=== PATIENT | female | born 1990 | race African-American/Black ===

== ENCOUNTER 2018-10-11 17:25 | Emergency (ER) | payer OTHER ==
--- NOTE | 2018-10-11 17:30 | PDOC ---
Rapid Medical Evaluation Time Seen by Provider: 10/11/18 17:27 Medical Evaluation: 10/11/18 17:28 HPI:pelvic pressure x2 days PE:No gross deficits ORDERS: UA U Preg Belly Labs Discharge Disposition - Diagnosis Pelvic pressure in female - Referrals - Patient Instructions - Post Discharge Activity
[2018-10-11 17:42] VITALS: BP 106/60; PULSE 100; TEMP 98.8; BMI 37.2
[2018-10-11 18:55] LABS: BASO % 0.8 % (0-2.0); EOS % 0.8 % (0-4.5); HEMATOCRIT 36.4 % (32.4-45.2); HEMOGLOBIN 12.3 GM/dL (10.7-15.3); LYMPH % 20.2 % (8-40); MCH 28.5 pg (25.7-33.7); MCHC 33.7 g/dl (32.0-36.0); MEAN CELL VOLUME 84.3 fl (80-96); MEAN PLT VOLUME 8.6 fl (7.5-11.1); MONO % 5.5 % (3.8-10.2); NEUT % 72.7 % (42.8-82.8); PLATELET COUNT 283 K/MM3 (134-434); RBC 4.31 M/mm3 (3.60-5.2); RDW 14.2 % (11.6-15.6)
[2018-10-11 19:22] LABS: ALBUMIN 3.1 g/dl (3.4-5.0); BILIRUBIN,TOTAL 0.4 mg/dL (0.2-1); BLOOD UREA NITROGEN 5.6 mg/dL (7-18); CALCIUM 9.3 mg/dL (8.5-10.1); CREATININE 0.6 mg/dL (0.55-1.3); POTASSIUM 3.9 mmol/L (3.5-5.1); TOT PROT 6.6 g/dl (6.4-8.2)
[2018-10-11 19:44] LABS: EPI CELLS 28.3 /HPF (0-5/HPF); HYALINE CASTS 20 /lpf (0-8); URINE APPEARANCE TURBID; URINE BACTERIA 1140.1 /hpf (NEGATIVE); URINE BILIRUBIN NEGATIVE (NEGATIVE); URINE COLOR YELLOW; URINE GLUCOSE (UA) NEGATIVE (NEGATIVE); URINE KETONE 3+ (NEGATIVE); URINE LEUK ESTERASE 2+ (NEGATIVE); URINE NITRITE NEGATIVE (NEGATIVE); URINE PROTEIN NEGATIVE (NEGATIVE); URINE WBC 51 /hpf (0-5)
--- NOTE | 2018-10-11 19:51 | PDOC ---
*Physical Exam - Vital Signs Last Vital Signs Temp Pulse Resp BP Pulse Ox 98.8 F 100 H 18 106/60 99 10/11/18 17:32 10/11/18 17:32 10/11/18 17:32 10/11/18 17:32 10/11/18 17:32 ED Treatment Course - LABORATORY CBC & Chemistry Diagram: 10/11/18 18:45 10/11/18 18:45 - ADDITIONAL ORDERS Additional order review: Laboratory Results 10/11/18 10/11/18 10/11/18 19:15 19:15 18:45 Sodium Potassium Chloride Carbon Dioxide Anion Gap BUN Creatinine Est GFR (CKD-EPI)AfAm Est GFR (CKD-EPI)NonAf Random Glucose Calcium Total Bilirubin AST ALT Alkaline Phosphatase Total Protein Albumin Lipase 100 Urine Color Yellow Urine Appearance Turbid Urine pH 5.0 Ur Specific [place] 1.028 Urine Protein Negative Urine Glucose (UA) Negative Urine Ketones 3+ H Urine Blood Negative Urine Nitrite Negative Urine Bilirubin Negative Urine Urobilinogen 1.0 Ur Leukocyte Esterase 2+ H Urine WBC (Auto) 51 Urine Casts (Auto) 20 U Epithel Cells (Auto) 28.3 Urine Bacteria (Auto) 1140.1 Urine HCG, Qual Positive 10/11/18 18:45 Sodium 140 Potassium 3.9 Chloride 107 Carbon Dioxide 24 Anion Gap 9 BUN 5.6 L Creatinine 0.6 Est GFR (CKD-EPI)AfAm 144.78 Est GFR (CKD-EPI)NonAf 124.92 Random Glucose 70 L Calcium 9.3 Total Bilirubin 0.4 AST 7 L ALT 14 Alkaline Phosphatase 53 Total Protein 6.6 Albumin 3.1 L Lipase Urine Color Urine Appearance Urine pH Ur Specific [place] Urine Protein Urine Glucose (UA) Urine Ketones Urine Blood Urine Nitrite Urine Bilirubin Urine Urobilinogen Ur Leukocyte Esterase Urine WBC (Auto) Urine Casts (Auto) U Epithel Cells (Auto) Urine Bacteria (Auto) Urine HCG, Qual 10/11/18 18:45 RBC 4.31 MCV 84.3 MCHC 33.7 RDW 14.2 MPV 8.6 Neutrophils % 72.7 Lymphocytes % 20.2 Monocytes % 5.5 Eosinophils % 0.8 Basophils % 0.8 Medical Decision Making - Medical Decision Making 10/11/18 19:50 Patient seen by the advanced practice provider under my direct supervision. Ancillary testing reviewed as necessary. I agree with plan as outlined by the advanced practice provider. *DC/Admit/Observation/Transfer Diagnosis at time of Disposition: Cystitis - Discharge Dispostion Disposition: HOME Condition at time of disposition: Stable - Prescriptions Prescriptions: Cephalexin Monohydrate [Keflex -] 500 mg PO BID #14 capsule - Referrals - Patient Instructions Additional Instructions: Rest, drink lots of fluids: Teas, water, soups Avoid contact with others until fevers and symptoms resolved Lots of handwashing and good hygiene Continue [id number] medications for symptomatic relief Tylenol for fever and pain Continue all of antibiotics until completed Followup with your land commissioner in one week for repeat urinalysis/reevaluation Return to emergency department for worsened symptoms, fevers, dehydration - Post Discharge Activity
[2018-10-11 20:02] LABS: URINE RBC 6.6 /hpf (0-4)
[2018-10-11 20:03] LABS: URINE CRYSTALS CALCIUM OXALATE 3+ /hpf
--- NOTE | 2018-10-11 20:18 | PDOC ---
History of Present Illness - General Chief Complaint: Pain Stated Complaint: 16 WK PREG/PRESSURE PAIN Time Seen by Provider: 10/11/18 17:27 History Source: Patient Exam Limitations: No Limitations - History of Present Illness Initial Comments: 10/11/18 20:01 HISTORY OF PRESENT ILLNESS: This is a 27-year-old 2 para 1 who is 16 weeks who presents emergency department for evaluation of lower abdominal pressure. Patient reports the pain worsens when she was in her right side. Patient reports the pain is more for pressure and is different from her usual menstrual pain. She denies any nausea, vomiting, diarrhea, dysuria, fevers , chills, urinary frequency vaginal bleeding or vaginal discharge. No recent travel or sick contacts. PAST MEDICAL HISTORY: Denies past medical history SURGICAL HISTORY: Denies ALLERGIES: vancomycin REVIEW OF SYSTEMS General/Constitutional: Denies fever or chills. Denies weakness, weight change. HEENT: Denies change in vision. Denies ear pain or discharge. Denies sore throat. Cardiovascular: Denies chest pain or shortness of breath. Respiratory: Denies cough, wheezing, or hemoptysis. Gastrointestinal: Denies nausea, vomiting, diarrhea or constipation. Denies rectal bleeding. Genitourinary: see HPI Musculoskeletal: Denies joint or muscle swelling or pain. Denies neck or back pain. Skin and breasts: Denies rash or easy bruising. Neurologic: Denies headache, vertigo, loss of consciousness, or loss of sensation. Psychiatric: Denies depression or anxiety. Endocrine: Denies increased thirst. Denies abnormal weight change. Hematologic/Lymphatic: Denies anemia, easy bleeding, or history of blood clots. Allergic/Immunologic: Denies hives or skin allergy. Denies latex allergy. PHYSICAL EXAM General Appearance: Well-appearing, appropriately dressed. No apparent distress , no intoxication. Respiratory/Chest: Lungs CTAB. No shortness of breath, chest tenderness, respiratory distress, accessory muscle use. No crackles, rales, rhonchi, stridor , wheezing, dullness Cardiovascular: RRR. S1, S2. No JVD, murmur, bradycardia, tachycardia. Vascular Pulses: Dorsalis-Pedis (R): 2+, Dorsalis-Pedis (L): 2+ Gastrointestinal/Abdominal: Normal bowel sounds. Gravid abdomen. No tenderness or rebound tenderness. No pulsatile mass, guarding, hernia, hepatomegaly, splenomegaly. Lymphatic: No adenopathy, tenderness. Neurologic: loading unit tool setter II-XII intact. Fully oriented, alert. Appropriate mood/affect. Motor strength 5/5. No appreciable EOM palsy, facial droop or sensory deficit. Past History - Past Medical History Allergies/Adverse Reactions: Allergies Allergy/AdvReac Type Severity Reaction Status Date / Time vancomycin Allergy Verified 10/11/18 17:28 Home Medications: Ambulatory Orders Cephalexin Monohydrate [Keflex -] 500 mg PO BID #14 capsule 10/11/18 95/Iron Fum/Folic/Dha [ + Dha Combo Pack] 1 each PO DAILY 10/11 COPD: No - Surgical History Abdominal Surgery: Yes (r/t ruptured cyst) - Suicide/Smoking/Psychosocial Hx Smoking History: Never smoked Hx Alcohol Use: No Drug/Substance Use Hx: No *Physical Exam - Vital Signs Last Vital Signs Temp Pulse Resp BP Pulse Ox 98.8 F 100 H 18 106/60 99 10/11/18 17:32 10/11/18 17:32 10/11/18 17:32 10/11/18 17:32 10/11/18 17:32 ED Treatment Course - LABORATORY CBC & Chemistry Diagram: 10/11/18 18:45 10/11/18 18:45 - ADDITIONAL ORDERS Additional order review: Laboratory Results 10/11/18 10/11/18 10/11/18 19:15 19:15 18:45 Sodium Potassium Chloride Carbon Dioxide Anion Gap BUN Creatinine Est GFR (CKD-EPI)AfAm Est GFR (CKD-EPI)NonAf Random Glucose Calcium Total Bilirubin AST ALT Alkaline Phosphatase Total Protein Albumin Lipase 100 Urine Color Yellow Urine Appearance Turbid Urine pH 5.0 Ur Specific [place] 1.028 Urine Protein Negative Urine Glucose (UA) Negative Urine Ketones 3+ H Urine Blood Negative Urine Nitrite Negative Urine Bilirubin Negative Urine Urobilinogen 1.0 Ur Leukocyte Esterase 2+ H Urine WBC (Auto) 51 Urine Casts (Auto) 20 U Epithel Cells (Auto) 28.3 Urine Bacteria (Auto) 1140.1 Urine HCG, Qual Positive 10/11/18 18:45 Sodium 140 Potassium 3.9 Chloride 107 Carbon Dioxide 24 Anion Gap 9 BUN 5.6 L Creatinine 0.6 Est GFR (CKD-EPI)AfAm 144.78 Est GFR (CKD-EPI)NonAf 124.92 Random Glucose 70 L Calcium 9.3 Total Bilirubin 0.4 AST 7 L ALT 14 Alkaline Phosphatase 53 Total Protein 6.6 Albumin 3.1 L Lipase Urine Color Urine Appearance Urine pH Ur Specific [place] Urine Protein Urine Glucose (UA) Urine Ketones Urine Blood Urine Nitrite Urine Bilirubin Urine Urobilinogen Ur Leukocyte Esterase Urine WBC (Auto) Urine Casts (Auto) U Epithel Cells (Auto) Urine Bacteria (Auto) Urine HCG, Qual 10/11/18 18:45 RBC 4.31 MCV 84.3 MCHC 33.7 RDW 14.2 MPV 8.6 Neutrophils % 72.7 Lymphocytes % 20.2 Monocytes % 5.5 Eosinophils % 0.8 Basophils % 0.8 - RADIOLOGY Radiology Studies Ordered: Category Date Time Status LIMITED US [US] Stat Ultrasound 10/11/18 19:49 Ordered Medical Decision Making - Medical Decision Making 10/11/18 20:18 A/P: 27-year-old woman with lower abdominal pressure Labs including beta hCG Urine Abdominal ultrasound Reassess 10/11/18 21:14 Ultrasound as read by Dr. Sun: Single viable intrauterine gestation at approximately 16 weeks 4 days. heart rate 166. CBC notable for WBC-11 no shift present. Chemistries are unremarkable Beta hCG 13,254 consistent with 16 weeks gestation Urinalysis notable for 3+ ketones, 2+ leuk esterase 51 WBCs on high-power field and 3+ calcium oxalate. 28.3 epithelial cells- likely questional contamination but as patient is I will treat with Keflex 500 mg twice a day for 7 days. I discussed the physical exam findings, ancillary test results and final diagnoses with the patient. I answered all of the patient's questions. The patient was satisfied with the care received and felt comfortable with the discharge plan and treatment plan. The patient will call their primary care physician within 24 hours to arrange follow-up and will return to the Emergency Department with any new, persistent or worsening symptoms. *DC/Admit/Observation/Transfer Diagnosis at time of Disposition: Cystitis - Discharge Dispostion Disposition: HOME Condition at time of disposition: Stable Decision to Admit order: No - Prescriptions Prescriptions: Cephalexin Monohydrate [Keflex -] 500 mg PO BID #14 capsule - Referrals - Patient Instructions Additional Instructions: Rest, drink lots of fluids: Teas, water, soups Avoid contact with others until fevers and symptoms resolved Lots of handwashing and good hygiene Continue [id number] medications for symptomatic relief Tylenol for fever and pain Continue all of antibiotics until completed Followup with your welder and fitter in one week for repeat urinalysis/reevaluation Return to emergency department for worsened symptoms, fevers, dehydration - Post Discharge Activity
== END 2018-10-11 21:21 | disposition home or self-care (01) ==
LOC: JER 17:25
DX: O23.12 Infections of bladder in pregnancy, second trimester (principal); Z3A.16 16 weeks gestation of pregnancy
CPT/HCPCS: 36415; 76815-TC; 80053; 81003; 83690; 84702; 84703; 85025; 87086; 99283-25